=== PATIENT | female | born 2005 | race Hispanic/Latino ===

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

== ENCOUNTER 2024-01-09 21:39 | Day surgery (SDC) | payer OTHER ==
[2024-01-09 22:06] VITALS: BMI 39.4
[2024-01-09] MEDS ORDERED: hydrALAZINE 20 MG/ML VIAL SLOW IVP PRN (23:15)
[2024-01-09] MEDS ORDERED: Lactated Ringer's 1,000 ML IV SCH (23:30)
[2024-01-09 23:45] LABS: #Basophils 0.02 10x3/uL (0.0-0.2); #Monocytes 0.61 10x3/uL (0.0-1.1); #Neutrophils 5.93 10x3/uL (1.5-8.4); %Basophils 0.2 % (0.0-2.0); %Eosinophils 1.2 % (0.0-6.0); %Lymphocytes 21.7 % (18.0-47.0); %Monocytes 7.1 % (0.0-10.0); Hematocrit 29.9 % (34.9-44.5); Hemoglobin 10.3 g/dL (12.0-15.5); Mean Corpuscular HGB CONC 34.4 g/dL (32.0-36.0); Mean Corpuscular Hemoglobin 31.7 pg (27.0-33.0); Mean Platelet Volume 12.9 fL (7.4-10.4); Platelet Count 172 10x3/uL (150-450); RBC Distribution Width 12.4 % (11.5-14.5); Red Blood Cell (RBC) Count 3.25 10x6/uL (3.90-5.03); White Blood Cell (WBC) Count 8.6 10x3/uL (3.5-10.5)
[2024-01-09 23:50] LABS: ALT (SGPT) 42 U/L (8-55); AST (SGOT) 25 U/L (5-30); Albumin 2.6 g/dL (3.5-5.0); Alkaline Phosphatase 198 U/L (40-100); Anion Gap 13 mmol/L (10-20); BUN (Urea Nitrogen) 8 mg/dL (8.4-21.0); Bilirubin, Total 0.2 mg/dL (0.2-1.2); Calc. Creatinine Clearance 282 mL/min (70-130); Calcium 8.9 mg/dL (7.8-10.44); Carbon Dioxide 18 mmol/L (22-29); Chloride 110 mmol/L (98-107); Estimated GFR 135; Globulin 3.5 g/dL (2.4-3.5); Glucose 88 mg/dL (70-105); Potassium 3.4 mmol/L (3.5-5.1); Protein, Total 6.1 g/dL (6.0-8.3); Sodium 138 mmol/L (136-145)
[2024-01-10] MEDS: Acetaminophen 325 MG TAB PO PRN (00:06)
[2024-01-10] MEDS ORDERED: Lactated Ringer's 1,000 ML IV SCH (01:00)
[2024-01-10] MEDS: Potassium Chloride 20 MEQ TAB PO SCH (01:24)
== END 2024-01-10 01:55 | disposition home or self-care (01) ==
LOC: CSHLD/OP 21:39
PROVIDERS: ATTEND Obstetrics & Gynecology
DX: O47.1 False labor at or after 37 completed weeks of gestation (principal); O00.01 Abdominal pregnancy with intrauterine pregnancy; O99.513 Diseases of the respiratory system complicating pregnancy, third trimester; J45.909 Unspecified asthma, uncomplicated; O99.283 Endocrine, nutritional and metabolic diseases complicating pregnancy, third trimester; E86.0 Dehydration; E87.6 Hypokalemia; O99.891 Other specified diseases and conditions complicating pregnancy; R51.9 Headache, unspecified; Z79.899 Other long term (current) drug therapy; Z91.018 Allergy to other foods; Z3A.38 38 weeks gestation of pregnancy
CPT/HCPCS: 80053; 85025; 96360; 96361; 99284

== ENCOUNTER 2024-01-13 19:00 | Inpatient (IN) | payer OTHER ==
[~2024-01-13 19:00] MED LIST: Acetaminophen 500 MG TAB PO PRN; Bupivacaine 0.25% HCL 30 ML VIAL ONE; Carboprost 250 MCG/ML AMP IM PRN; Diphenoxylate HCl/Atropine Tablet PO PRN; Lidocaine 1% (PF) 30 ML VIAL SC PRN; Methylergonovine 0.2 MG/ML VIAL IM PRN; Misoprostol 100 MCG TAB VAG SCH; Misoprostol 200 MCG TAB PR PRN; Oxytocin 30 units/NS 500 ML 500 ML IV SCH; Promethazine HCl 25 MG/ML VIAL IM PRN; Tranexamic Acid 1,000 MG/10 ML VIAL IVP PRN; hydrALAZINE 20 MG/ML VIAL SLOW IVP PRN
[2024-01-13 20:42] VITALS: BMI 39.4
[2024-01-13] MEDS: Lactated Ringer's 1,000 ML IV SCH (21:20)
[2024-01-13 21:39] LABS: Hematocrit 31.9 % (34.9-44.5); Hemoglobin 10.8 g/dL (12.0-15.5); Mean Corpuscular HGB CONC 33.9 g/dL (32.0-36.0); Mean Corpuscular Hemoglobin 31.3 pg (27.0-33.0); Mean Corpuscular Volume 92.5 fL (81.6-98.3); RBC Distribution Width 12.4 % (11.5-14.5); Red Blood Cell (RBC) Count 3.45 10x6/uL (3.90-5.03); White Blood Cell (WBC) Count 8.1 10x3/uL (3.5-10.5)
[2024-01-13 21:40] LABS: Mean Platelet Volume 13.3 fL (7.4-10.4); Platelet Count 139 10x3/uL (150-450)
[2024-01-13] MEDS: Oxytocin 30 units/NS 500 ML 500 ML IV SCH (22:28)
[2024-01-13] MEDS: Penicillin G Potassium 5 MILL.UNITS in Sodium Chloride 0.9% 100 ML IVPB SCH (22:28)
[2024-01-13] MEDS: Misoprostol 100 MCG TAB VAG SCH (22:28)
[2024-01-13 23:08] LABS: Hep B Surf Ag - L&D Non-Reactive S/CO (NonReactive)
[2024-01-13 23:55] LABS: Syphilis Antibody Nonreactive (Nonreactive); Syphilis Antibody Index 0.07 S/CO (<1.00 Non-Reactive)
[2024-01-14] MEDS: Penicillin G 2.5 MILL.units 2.5 MILL.UNITS in Premix 1 BAG IVPB SCH (03:08)
[2024-01-14] MEDS: fentaNYL/Ropivacaine Epidural 100 ML ONE (04:23)
[2024-01-14] MEDS ORDERED: Acetaminophen 325 MG TAB PO PRN (04:34)
[2024-01-14] MEDS ORDERED: Promethazine HCl 25 MG/ML VIAL IM PRN (04:34)
[2024-01-14] MEDS ORDERED: diphenhydrAMINE 50 MG/ML VIAL IVP PRN (04:34)
[2024-01-14] MEDS ORDERED: Naloxone HCl 0.4 mg/ml Vial IVP PRN ×2 (04:34)
[2024-01-14] MEDS ORDERED: Moisturizing Cream (Eucerin) 113 GM JAR TOP PRN (04:34)
[2024-01-14] MEDS ORDERED: ePHEDrine Sulfate 50 MG/10 ML VIAL SLOW IVP PRN (04:34)
[2024-01-14] MEDS ORDERED: Lactated Ringer's 500 ML IV PRN (04:34)
[2024-01-14] MEDS ORDERED: Communication Order-Pharmacy FS SCH (04:45)
[2024-01-14] MEDS ORDERED: fentaNYL 2 mcg/Ropivacaine 0.2% Epidural 100 ML CADD EPIDURAL SCH (04:45)
[2024-01-14] MEDS: Ondansetron PF 4 MG/2 ML Vial IVP PRN ×2 (08:02→21:24)
[2024-01-14] MEDS ORDERED: Milk Of Magnesia 30 ML UDCUP PO PRN (14:37)
[2024-01-14] MEDS ORDERED: Preparation H Ointment 28 GM TUBE PR PRN (14:37)
[2024-01-14] MEDS ORDERED: Misoprostol 200 MCG TAB VAG PRN (14:37)
[2024-01-14] MEDS ORDERED: Methylergonovine 0.2 MG/ML VIAL IM PRN (14:37)
[2024-01-14] MEDS ORDERED: hydrALAZINE 20 MG/ML VIAL SLOW IVP PRN (14:37)
[2024-01-14] MEDS ORDERED: Oxytocin 30 units/NS 500 ML 500 ML IV SCH (14:37)
[2024-01-14] MEDS ORDERED: Bisacodyl 10 MG SUPP PR PRN (14:37)
[2024-01-14] MEDS ORDERED: Benzocaine-Menthol 82.5 ML CAN TOP PRN (14:37)
[2024-01-14] MEDS ORDERED: diphenhydrAMINE 25 MG CAP PO PRN (14:37)
[2024-01-14] MEDS ORDERED: Lanolin Ointment 7 GM TUBE TOP PRN (14:37)
[2024-01-14] MEDS: Ibuprofen 800 MG TAB PO SCH (15:08)
[2024-01-14] MEDS: Ferrous Sulfate 325 MG TAB PO SCH (15:28)
[2024-01-14] MEDS: Docusate 100 MG CAP PO SCH (20:33)
[2024-01-15] MEDS: Prenatal Vitamin 1 TAB PO SCH (08:20)
[2024-01-15] MEDS: Boostrix 0.5 ML (Tdap) VIAL (>/=7 yrs of age) IM ONE (14:48)
[2024-01-16 07:44] VITALS: BP 133/82; TEMP 98.1
== END 2024-01-16 11:05 | disposition home or self-care (01) | DRG 807 ==
LOC: CSHLD 20:07 → CSHPP 01-14 14:10
PROVIDERS: ADMIT Family Medicine; ATTEND Family Medicine
PROC: 10E0XZZ Delivery of Products of Conception, External Approach (ICD-10-PCS; principal; 2024-01-14)
PROC: 10H07YZ Insertion of Other Device into Products of Conception, Via Natural or Artificial Opening (ICD-10-PCS; 2024-01-14)
PROC: 10907ZC Drainage of Amniotic Fluid, Therapeutic from Products of Conception, Via Natural or Artificial Opening (ICD-10-PCS; 2024-01-14)
DX: O99.824 Streptococcus B carrier state complicating childbirth (principal); Z37.0 Single live birth; O70.0 First degree perineal laceration during delivery; O99.214 Obesity complicating childbirth; O99.52 Diseases of the respiratory system complicating childbirth; J45.20 Mild intermittent asthma, uncomplicated; K58.9 Irritable bowel syndrome, unspecified; O99.62 Diseases of the digestive system complicating childbirth; O99.02 Anemia complicating childbirth; Z3A.39 39 weeks gestation of pregnancy
CPT/HCPCS: 36415; 51702; 85027; 86780; 86850; 86900; 86901; 87340; J0665; J2405; J2540; J2590; J7120

== ENCOUNTER 2024-06-06 12:42 | Emergency (ER) | payer OTHER ==
[2024-06-06] MEDS ORDERED: Ketorolac Tromethamine 30 MG (1 mL) VIAL ONE (13:54)
[2024-06-06] MEDS ORDERED: Iopamidol 370 76% 100 ML VIAL ONE (14:01)
[2024-06-06 14:02] LABS: #Basophils 0.02 10x3/uL (0.0-0.2); #Eosinophils 0.14 10x3/uL (0.0-0.5); #Monocytes 0.31 10x3/uL (0.0-1.1); #Neutrophils 3.27 10x3/uL (1.5-8.4); %Basophils 0.3 % (0.0-2.0); %Eosinophils 2.4 % (0.0-6.0); %Lymphocytes 35.9 % (18.0-47.0); %Monocytes 5.3 % (0.0-10.0); %Neutrophils 55.9 % (40.0-75.0); Hematocrit 39.8 % (34.9-44.5); Hemoglobin 13.3 g/dL (12.0-15.5); Mean Corpuscular HGB CONC 33.4 g/dL (32.0-36.0); Mean Corpuscular Hemoglobin 29.6 pg (27.0-33.0); Mean Corpuscular Volume 88.6 fL (81.6-98.3); Mean Platelet Volume 10.6 fL (7.4-10.4); Platelet Count 239 10x3/uL (150-450); RBC Distribution Width 13.4 % (11.5-14.5); Red Blood Cell (RBC) Count 4.49 10x6/uL (3.90-5.03); White Blood Cell (WBC) Count 5.9 10x3/uL (3.5-10.5)
[2024-06-06 14:10] LABS: BHCG - Serum Negative (NEGATIVE); Pregs Control Background? CLEAR/WHITE (CLR/WHITE); Pregs Control Bar Appear? YES (CONTROL BAR)
[2024-06-06 14:17] LABS: ALT (SGPT) 15 U/L (8-55); AST (SGOT) 18 U/L (5-34); Alkaline Phosphatase 75 U/L (40-100); Anion Gap 12 mmol/L (10-20); BUN (Urea Nitrogen) 11 mg/dL (7.0-18.7); Bilirubin, Total 0.3 mg/dL (0.2-1.2); Calc. Creatinine Clearance 0 mL/min (70-130); Calcium 9.5 mg/dL (7.8-10.44); Carbon Dioxide 19 mmol/L (22-29); Chloride 108 mmol/L (98-107); Estimated GFR 128; Globulin 3.7 g/dL (2.4-3.5); Glucose 86 mg/dL (70-105); Potassium 4.3 mmol/L (3.5-5.1); Protein, Total 7.7 g/dL (6.0-8.3); Sodium 135 mmol/L (136-145)
[2024-06-06 15:08] LABS: Bilirubin Neg (Negative); Blood, Urine Negative (Negative); Clarity Clear (Clear); Glucose, Urine (Dipstick) Normal (Negative); Ketone, Urine Negative (Negative); Leukocyte Negative (Negative); Nitrite Negative (Negative); Protein, Urine (Dipstick) Negative (Neg-Trace); Specific Gravity, Urine 1.005 (1.005-1.030); Urobilinogen Normal mg/dL (Less than 2)
[2024-06-06 15:13] LABS: CAUTI Indications for Culture Pelvic or flank pain
[2024-06-06 15:15] LABS: RBC/HPF 0-3 HPF (0-3)
[2024-06-06 15:16] LABS: Bacteria/HPF Rare-Few HPF (None Seen); Squamous Epithelial 0-3 HPF (0-3); Urine Culture Reflex No No; WBC/HPF 0-3 HPF (0-3)
== END 2024-06-06 15:28 | disposition home or self-care (01) ==
LOC: CSHERS 12:42
DX: M54.40 Lumbago with sciatica, unspecified side (principal); R30.0 Dysuria
CPT/HCPCS: 74177; 80053; 81001; 84703; 85025; 86140; 96374; J1885; Q9967